=== PATIENT | male | born 1990 | race Caucasian/White ===

== ENCOUNTER 2020-01-13 22:54 | Emergency (ER) | payer OTHER, SELFPAY ==
--- NOTE | ~2020-01-13 | XR_ITS ---
EXAMINATION: XR foot LT min 3V DATE: 01/13/2020 23:58 INDICATION: Left foot pain, stepped on nail TECHNIQUE: Dorsoplantar, lateral, and 2 oblique views of the left foot were obtained. COMPARISON: None. FINDINGS: There is plantar soft tissue swelling of the foot near the distal metatarsals. No radiopaqu e foreign body is identified. There is no fracture. Bone alignment is normal. IMPRESSION: 1. Plantar soft tissue swelling of the foot without radiopaque foreign body or evidence of fracture. Reviewed, dictated and finalized at location [facility]
[2020-01-13 22:57] VITALS: BP 166/91; PULSE 108; RESP 18; TEMP 36.6; O2SAT 97
--- NOTE | 2020-01-13 23:47 | ED.LOWEXIN ---
HPI - Extremity Injury (Lower) General Chief Complaint: Extremity Injury, Lower Stated Complaint: L foot pain after stepping on nail Time Seen by Provider: 01/13/20 23:29 Source: patient Mode of arrival: ambulatory Limitations: no limitations History of Present Illness HPI Narrative: Patient is a 29-year-old male who presents to the emergency department complaint of plantar puncture wound to the left foot. Patient was outside cleaning up a shed that had fallen and burning the wound when he stepped on a nail that was protruding through the board. Nail punctured through his shoe into the plantar aspect of his left foot. This occurred last night. Patient was seen at an outside emergency department this morning where he had an x-ray completed and did receive a tetanus shot. Patient was prescribed Keflex and tramadol. Patient reports increased swelling and pain, prompting his emergency department visit this evening. complaint: foot injury Onset (ago): day(s) (1) Injury: Left: foot Type of Injury: puncture wound Place: street/outdoors Relieving factors: nothing Exacerbating factors: weight bearing, movement and palpation Context: stepped on nail Other symptoms: none Related Data Home Medications Medication Instructions Recorded Confirmed cephalexin 01/13/20 01/13/20 tramadol mg 01/13/20 Allergies Allergy/AdvReac Type Severity Reaction Status Date / Time No Known Allergies Allergy Verified 01/13/20 23:02 Review of Systems Review of Systems: All systems reviewed & are unremarkable except as noted in HPI and below Constitutional: Constitutional: Denies fever(s) PMFSH Past Medical History Medical History (Updated 01/14/20 @ 00:10 by Pinky Piper MD) No significant past medical history Surgical History Surgical History (Updated 01/14/20 @ 00:01 by Pinky Piper MD) No significant past surgical history Social History Social History (Updated 01/14/20 @ 00:01 by Pinky Piper MD) Smoking packs per day: 0.5 Smoking cigarettes per day: 10.0 Smoking status: Current every day smoker Gender identity (if verbalized by the patient): Male Exam Const: General: cooperative, no acute distress and alert Nutritional Appearance: well nourished Orientation/consciousness: patient oriented x3 Limitations: no limitations Cardio: Peripheral pulses: posterior tibial pulses present bilateral 2+ and dorsalis pedis present bilateral 2+ Skin: General skin exam: normal color Neuro: General: patient oriented x3 Cognition (Neuro): normal cognition Speech: normal speech Extrem: General: full ROM Right lower extremity: foot Details: tenderness Location: of the plantar foot Location: distally (At site of plantar puncture wound and surrounding soft tissue), puncture wound plantar distal Details: single (No drainage) and other (Mild swelling surrounding plantar puncture wound); no unusual warmth (No erythema) Psych: Mental Status: mental status grossly normal Affect: normal affect Attitude: cooperative Course Course Emergency Course: Patient with no evidence of fracture or foreign body noted on x-ray. Patient with reasonable amount of soft tissue swelling and tenderness consistent with his puncture wound. Will add Cipro to patient's antibiotic regimen to provide prophylaxis against Pseudomonas. Advised close primary care follow-up. Will also prescribe anti-inflammatories. Vital Signs Vital signs: Vital Signs Temperature 97.9 F 01/13/20 22:57 Pulse Rate 108 H 01/13/20 22:57 Respiratory Rate 18 01/13/20 22:57 Blood Pressure 166/91 H 01/13/20 22:57 Pulse Oximetry 97 01/13/20 22:57 Temperature 97.9 F 01/13/20 22:57 Pulse Rate 108 H 01/13/20 22:57 Respiratory Rate 18 01/13/20 22:57 Blood Pressure 166/91 H 01/13/20 22:57 Pulse Oximetry 97 01/13/20 22:57 MDM - Extremity Injury (Lower) Imaging Data Attestation: I personally reviewed and interpreted this im
--- NOTE | 2020-01-13 23:50 | PC.NURSE ---
Patient taken to xray.
[2020-01-14] MEDS: IBUPROFEN 600 MG TABLET PO
[2020-01-14] MEDS: CIPROFLOXACIN 500 MG TAB PO (00:27)
== END 2020-01-14 00:55 | disposition home or self-care (01) ==
PROVIDERS: Emergency Provider Emergency Medicine
DX: S91.332A Puncture wound without foreign body, left foot, initial encounter (principal); F17.210 Nicotine dependence, cigarettes, uncomplicated; W45.0XXA Nail entering through skin, initial encounter
CPT/HCPCS: 73630; 99283; A9270